=== PATIENT | female | born 1970 | race Caucasian/White ===

== ENCOUNTER → 2021-09-06 | Outpatient (CLI) | payer BC ==
[~2021-09-06] VITALS: Ht 165.1 cm; Wt 134.1 kg
[~2021-09-06] MED LIST: LIDOCAINE 1% INJ 20 ML VIAL INJ ONE; LIDOCAINE 1% INJ 20 ML VIAL ONE
--- NOTE | 2021-09-06 09:40 | Diagnostic Imaging Report ---
Indication: Right breast density. Patient presents for right breast biopsy. Patient brought to the mammographic suite and placed in a chair in a sitting upright position. The right breast was positioned mediolateral. The density in the medial right breast was tomographically targeted. The medial right breast was then prepped and draped in usual sterile fashion. Small amount 1% lidocaine was utilized for local anesthesia. 8 gauge needle was advanced from a mediolateral approach and placed per tomographic coordinates. A total of 4 core biopsies were obtained utilizing a vacuum-assisted device. All images were viewed on a dedicated workstation. A marker clip was then deployed. The needle was removed and hemostasis was obtained using manual compression. Follow-up 2-D CC and ML mammography does show postbiopsy changes in the medial aspect of the right breast with marker clip in place. Patient tolerated procedure well and left the department in stable condition. IMPRESSION: Successful tomographic/stereotactic biopsy of right breast density, utilizing an 8 gauge vacuum-assisted device. Pathology results are currently pending. Dictated by: Dictated on workstation # [id number]
== END ==
LOC: RAD 08:26
PROVIDERS: ATTEND Nurse Practitioner Women's Health
DX: N63.10 Unspecified lump in the right breast, unspecified quadrant (principal)
CPT/HCPCS: 19081; A4648